=== PATIENT | male | born 1980 | race Caucasian/White ===

== ENCOUNTER 2018-04-19 09:27 | Emergency (ER) | payer SELFPAY ==
[~2018-04-19 09:27] MED LIST: Ibuprofen 200 MG TAB ONE; Nicotine 14 MG PATCH ONE; hydrOXYzine 25 MG TAB ONE; hydrOXYzine Pamoate 25 mg Capsule ONE; traZODone HCl 50 MG TAB ONE
== END 2018-04-19 09:48 | disposition home or self-care (01) ==
LOC: MADERS 09:27
DX: K02.9 Dental caries, unspecified (principal); F17.210 Nicotine dependence, cigarettes, uncomplicated
CPT/HCPCS: 99281; Q0177